=== PATIENT | female | born 1995 | race Caucasian/White ===

== ENCOUNTER → 2020-03-17 11:00 | Outpatient (BNVA) | payer MEDICAID, SELFPAY | PROVIDERS: Family Provider Nurse Practitioner; PCP Nurse Practitioner; Visit Provider Nurse Practitioner Women's Health | DX: Z34.90 Encounter for supervision of normal pregnancy, unspecified, unspecified trimester (principal); Z32.00 Encounter for pregnancy test, result unknown | CPT/HCPCS: 84315; 84702 ==

== ENCOUNTER → 2020-03-21 14:11 | Outpatient (BNVA) | payer MEDICAID, SELFPAY | PROVIDERS: Family Provider Nurse Practitioner; PCP Nurse Practitioner; Visit Provider Obstetrics & Gynecology | DX: O20.0 Threatened abortion (principal) | CPT/HCPCS: 84702; 85025; 86850; 86900 ==